=== PATIENT | male | born 1980 | race Caucasian/White ===

== ENCOUNTER 2017-04-28 17:43 | Emergency (ER) | payer OTHER, MEDICAID ==
[~2017-04-28] VITALS: Ht 182.9 cm; Wt 116.0 kg
[2017-04-28] MEDS ORDERED: ACETAMINOPHEN WITH CODEINE 300/30MG TABLET PO ONE (19:30)
[2017-04-28] MEDS ORDERED: IBUPROFEN 600MG TABLET PO ONE (19:30)
[2017-04-28 20:30] VITALS: BP 124/75
== END 2017-04-28 20:42 | disposition home or self-care (01) ==
LOC: ER 17:58
DX: S09.90XA Unspecified injury of head, initial encounter (principal); S16.1XXA Strain of muscle, fascia and tendon at neck level, initial encounter; V49.88XA Car occupant (driver) (passenger) injured in other specified transport accidents, initial encounter; Y93.89 Activity, other specified; Y92.410 Unspecified street and highway as the place of occurrence of the external cause; Y99.8 Other external cause status
CPT/HCPCS: 99283; Z7610